=== PATIENT | female | born 1940 | race Caucasian/White ===

== ENCOUNTER 2016-07-30 14:28 | Emergency (ER) | payer OTHER, BC ==
[~2016-07-30] VITALS: Ht 162.6 cm; Wt 50.8 kg
--- NOTE | ~2016-07-30 | EKG ---
[address] [address] ELECTROCARDIOGRAM REPORT Name: ALYX ORTIZ [id number] Admission: 07/30/16 Attend Phys: Discharge: 07/30/16 Date of : 38 Report #: [id number] THIS REPORT FOR: //name// [facility] ED Test Date: 2016-07-30 Test Time: 16:54:41 Pat Name: ALYX ORTIZ Department: Room: Gender: F Assistant Quality Manager: MZOOK : 1940 Requested By: Elvira Saleh Order Number: [id number] MD: Blas Odonnell Measurements Intervals [place] Rate: 115 P: 62 [place]: 146 QRS: 92 QRSD: 78 T: 62 QT: 324 QTc: 448 Interpretive Statements Sinus tachycardia Right axis deviation No previous ECG available for comparison Electronically Signed On 07-31-2016 8:59:44 [employer] WELDING OPERATOR by Blas Odonnell [email or web address] <ELECTRONICALLY SIGNED> By: Blas Odonnell MD, [facility] 07/31/16 0859 [id number] Blas Odonnell MD, FAC /EPI
[2016-07-30] MEDS ORDERED: CRESTOR10 MG PO (16:03)
[2016-07-30] MEDS ORDERED: NORVASC5 MG PO (16:03)
[2016-07-30] MEDS ORDERED: LISINOPRIL10 MG PO (16:03)
[2016-07-30] MEDS ORDERED: ALLERCLEAR D-11 EACH PO (16:04)
[2016-07-30] MEDS ORDERED: TUMS PO (16:04)
[2016-07-30] MEDS ORDERED: ZOLOFT25 MG PO (16:04)
[2016-07-30] MEDS ORDERED: ALPRAZOLAM 0.50.5 M1 PO (16:04)
[2016-07-30 17:29] LABS: ABSOLUTE NEUTROPHILS 6.9 thou/uL (1.4-8.2); BASOPHILS 0.5 % (0.0-2.0); EOSINOPHILS 1.1 % (0.0-3.0); HEMATOCRIT 40.1 % (37.0-47.0); HEMOGLOBIN 13.4 gm/dL (12.0-15.0); LYMPHOCYTES 18.7 % (24.0-44.0); MCH 29.7 pg (26.0-34.0); MCHC 33.4 % (28.0-37.0); MONOCYTES 7.5 % (1.0-8.0); PLATELET COUNT 225 thou/uL (150-400); POLYS 72.2 % (36.0-66.0); RBC 4.51 mil/uL (4.20-5.00); RDW 14.4 % (10.5-14.5); WBC 9.6 thou/uL (4.0-11.0)
[2016-07-30 17:34] LABS: MANUAL DIFF NO
[2016-07-30 17:38] LABS: ANION GAP 11 mmol/L (7-16); BUN 15 mg/dL (7-18); CALCIUM 9.3 mg/dL (8.5-10.1); CHLORIDE 98 mmol/L (98-107); CO2 27 mmol/L (21-32); CREATININE 0.6 mg/dL (0.6-1.3); GLUCOSE 91 mg/dL (70-99); POTASSIUM 4.3 mmol/L (3.5-5.1); SODIUM 136 mmol/L (136-145)
[2016-07-30 17:47] LABS: ALBUMIN 3.8 g/dL (3.4-5.0); ALKALINE PHOSPHATASE 78 U/L (46-116); SGOT 25 U/L (15-37); SGPT 20 U/L (30-65); TOTAL BILIRUBIN 0.4 mg/dL (<0.1-1.0); TROPONIN-I < 0.04 ng/mL (<0.04-0.07)
[2016-07-30] MEDS ORDERED: LEVAQUIN 500 M500 M2 PO (17:59)
[2016-07-30] MEDS ORDERED: DELTASONE20 MG PO (17:59)
[2016-07-30] MEDS ORDERED: TRAMADOL 50 MG50 MG PO (18:15)
[2016-07-30 18:19] VITALS: BP 118/72
== END 2016-07-30 18:19 | disposition home or self-care (01) ==
LOC: ER 14:28
PROVIDERS: Physician Assistant
DX: J44.9 Chronic obstructive pulmonary disease, unspecified (principal); J06.9 Acute upper respiratory infection, unspecified; M54.5 Low back pain; I10 Essential (primary) hypertension; Z88.5 Allergy status to narcotic agent; F17.210 Nicotine dependence, cigarettes, uncomplicated

== ENCOUNTER → 2016-12-28 | Outpatient (CLI) | payer OTHER, BC ==
[~2016-12-28] MED LIST: ALLERCLEAR D-11 EACH PO; ALPRAZOLAM 0.50.5 M1 PO; CRESTOR10 MG PO; DELTASONE20 MG PO; LEVAQUIN 500 M500 M2 PO; LISINOPRIL10 MG PO; NORVASC5 MG PO; TRAMADOL 50 MG50 MG PO; TUMS PO; ZOLOFT25 MG PO
== END ==
LOC: RAD 14:36
DX: M25.572 Pain in left ankle and joints of left foot (principal); Z91.81 History of falling

== ENCOUNTER → 2017-07-31 | Outpatient (CLI) | payer OTHER, BC | LOC: RAD 11:22 | DX: J44.9 Chronic obstructive pulmonary disease, unspecified (principal) ==